=== PATIENT | female | born 1995 | race Caucasian/White ===

== ENCOUNTER 2025-01-04 09:37 | Emergency (ER) | payer MEDICAID, SELFPAY ==
[2025-01-04 09:39] VITALS: BP 141/100
[2025-01-04 10:19] VITALS: BMI 25.8
--- NOTE | 2025-01-04 10:27 | ED.GENMED ---
History of Present Illness
General
Chief Complaint: Abdominal Symptoms
Source: patient
Exam Limitations: none
Time Seen by Provider: 01/04/25 10:11
Nursing documentation reviewed up to this point in time: agreed with
History of Present Illness
History of Present Illness:
The patient is a 29-year-old female who presents with complaints of lower abdominal pain and vaginal bleeding. She reports having an intrauterine device (IUD) placed in [place] four months ago and currently resides here. She has no PCP or [facility]
doctor. Her symptoms began approximately two weeks ago, with the bleeding occurring intermittently. She admits to pain severity rated as a 4 on a scale of 0 to 10 at present and denies taking any pain medication before the visit today. She visited
an urgent care center last night due to these symptoms. She describes the bleeding as less severe today, having used only one tampon compared to four or five used yesterday, and denies any clots. She has no fever, chills, upper abdominal pain, or
significant issues with urination or bowel movements.
Past History
Past History
ED Past Medical History: Psychiatric (current in IOP, takes - Lamictal (Lamotrigine) - Wellbutrin (Bupropion) - Hydroxyzine as needed - Quetiapine as needed)
ED Past Surgical History: None
Social History
Tobacco: Vaping
Alcohol: None
Personal: Single
Living: with roommate
Employment: Not employed
Review of Systems
Review of Systems
Allergies reviewed?: Yes
All Other Systems: ROS reviewed and negative except as documented in HPI and ROS
Constitutional: Denies fever
ABD/GI: Reports abdominal pain (lower abd cramping intermittently); Denies nausea, vomiting or diarrhea
: Reports bleeding (intermittently); Denies dysuria
Phy Exam
Physical Exam
Physical Exam:
GENERAL: No acute distress. A&Ox3.
CONSTITUTIONAL: Afebrile.
EYES: clear, conjunctivae normal
ENMT: moist mucus membranes, Pharynx nl
RESPIRATORY: Regular respirations, nonlabored, lungs clear.
CARDIOVASCULAR: Regular rate and rhythm, no murmurs, no rubs.
GI: Soft, mild tenderness across lower abdomen, normal BS
MUSCULOSKELETAL: Moves with ease. Well perfused.
SKIN: Warm, dry, pink
PSYCH: Normal mood and affect. Well kept, interactive and appropriate
NEUROLOGIC: Awake, alert and oriented. No focal neurological deficits
Course
Orders/Labs/Results
Orders:
Orders
01/04/25 10:20
US Pelvis W Transvag Combined Urgent
Reason For Exam: pain, int bleeding, since IUD placement 4mos ago
01/04/25 10:27
Ibuprofen [Motrin] 600 mg PO NOW STA
01/04/25 10:39
Complete Blood Count/With Diff Urgent
Comprehensive Metabolic Panel Urgent
Abnormal Lab Results
01/04/25
10:39
RBC 3.81 L 10^6/uL
(4.20-5.40)
Hct 35.7 L %
(37.0-47.0)
MCH 31.5 H pg
(27.0-31.0)
Monocytes % 10.6 H %
(1.7-9.3)
AST 46 H U/L
(14-36)
ALT 38 H U/L
(0-35)
01/04/25 10:39
01/04/25 10:39
Vital Signs
Initial and Last Documented VS:
Initial Vital Signs
Temp Pulse Resp BP Pulse Ox
98.4 F 83 18 141/100 98
01/04/25 09:39 01/04/25 09:39 01/04/25 09:39 01/04/25 09:39 01/04/25 09:39
Last Documented Vital Signs
Temp Pulse Resp BP Pulse Ox
98.4 F 83 18 135/88 98
01/04/25 09:39 01/04/25 09:39 01/04/25 12:00 01/04/25 14:17 01/04/25 10:33
MDM/Problems Addressed
Differential Diagnosis Includes:
DUB, IUD related complications, uterine fibroids,
MDM/Problems Addressed:
The patient is a 29-year-old female who presents with complaints of lower abdominal pain and vaginal bleeding. She reports having an intrauterine device (IUD) placed in [place] four months ago and currently resides here. She has no PCP or [facility]
doctor. Her symptoms began approximately two weeks ago, with the bleeding occurring intermittently. She admits to pain severity rated as a 4 on a scale of 0 to 10 at present and denies taking any pain medication before the visit today. She visited
an urgent care center last night due to these symptoms. She describes the bleeding as less severe today, having used only one tampon compared to four or five used yesterday, and denies any clots. She has no fever, chills, upper abdominal pain, or
significant issues with urination or bowel movements.
NAD
Plan:
The plan includes ordering an ultrasound to further evaluate the patients lower abdominal pain and bleeding. Basic blood work is also ordered. The patient will be given ibuprofen for pain management. She is instructed to ensure a full bladder for
the ultrasound procedure.
1:30 PM:
CBC, CMP with no clinically significant abnormalities
Ultrasound radiology report reviewed: IMPRESSION: Intrauterine device is present and is appropriately positioned within the endometrial canal. No focal abnormality of the uterus or endometrium.
Small simple cyst within the left ovary compatible with a dominant follicle. Normal appearance of the right ovary.
Patient is stable for discharge no significant bleeding since arrival referred to [facility]
*Pulse Oximetry
SaO2: 98
Oxygen Mode of Delivery: Room air
Patient hypoxic: not evaluated
*Critical Care Note
Total Time (30-74mins, 75-104mins- exclusive of procedures): Not Applicable
ED Attending Note
-
Portions of this chart may have been created with voice recognition software.� Occasional wrong word or��sound alike� substitutions may have occurred due to the inherent limitations of voice recognition software.
Discharge Plan
Departure
Patient Disposition: Home (Routine Discharge)
Date of Disposition: 01/04/25
Time of Disposition: 13:30
Patient with high blood pressure during this ER visit?: No
Condition: Good
Discharge Problem:
Abnormal vaginal bleeding
Referrals:
Skylar Lackey MD [Active, Gynecology] - Next open appointment
NONE,* [Family Provider, Internal Medicine]
Activity Restrictions/Additional Instructions:
As we discussed, your ultrasound shows nothing worrisome. Your IUD is in proper place.
Ibuprofen 600 mg, with food, every 6 hours as needed for abdominal cramping
Call the [facility] doctor and make next available appointment.
Interventions
Interventions:
*Risk Screen - Suicide Last Done: 01/04/25 09:44
*General Assessment Last Done: 01/04/25 09:39
*Neglect/Abuse Screening Last Done: 01/04/25 09:39
*ED- Fall Risk Assessment Last Done: 01/04/25 10:24
*ED COVID-19 Vaccine History Last Done: 01/04/25 10:21
*Nursing Disposition Last Done: 01/04/25 14:18
OT-Izrdvj-Zrusggntzl Assessment Last Done: 01/04/25 10:20
Discharge Date and Time
Discharge Date/Time: 01/04/25 14:18
Print Language: S[place]
[2025-01-04] MEDS: MOTRIN 600 MG PO (10:33)
[2025-01-04 10:51] LABS: Hematocrit 35.7 % (37.0-47.0); Hemoglobin 12.0 g/dL (12.0-16.0); Mean Corp Hgb Conc. 33.6 g/dL (33.0-37.0); Mean Corpuscular Volume 93.7 fL (81.0-99.0); Nucleated Red Blood Cells % 0 %; Platelet Count 230 10^3/uL (130-400); Red Cell Dist. Width 13.3 % (11.5-14.5)
[2025-01-04 11:20] LABS: ALT (SGPT) 38 U/L (0-35); AST (SGOT) 46 U/L (14-36); Albumin 4.5 g/dl (3.5-5.0); Alkaline Phosphatase 109 U/L (38-126); Blood Urea Nitrogen 14 mg/dl (7-17); Calcium 9.1 mg/dl (8.4-10.2); Carbon Dioxide 29 mmol/L (22-30); Chloride 101 mmol/L (98-107); Estimated Creatinine Clearance 98 ml/min; Glucose 83 mg/dl (70-99); Potassium 4.0 mmol/L (3.5-5.1); Sodium 136 mmol/L (135-145); Total Protein 7.2 g/dl (6.3-8.2); eGFR > 60.00
[2025-01-04 14:17] VITALS: BP 135/88
== END 2025-01-04 14:18 | disposition home or self-care (01) ==
LOC: EMR 09:37
PROVIDERS: Registered Nurse; EMERGENCY PHYSICIAN Emergency Medicine
DX: N93.9 Abnormal uterine and vaginal bleeding, unspecified (principal); R10.30 Lower abdominal pain, unspecified; N83.202 Unspecified ovarian cyst, left side; Z97.5 Presence of (intrauterine) contraceptive device; F17.290 Nicotine dependence, other tobacco product, uncomplicated
CPT/HCPCS: 99284; 76830; 76856; 80053; 85025